=== PATIENT | female | born 1980 | race Caucasian/White ===

== ENCOUNTER 2020-01-08 08:18 | Emergency (ER) | payer OTHER, SELFPAY ==
[2020-01-08 08:30] VITALS: BP 115/69; PULSE 82; RESP 18; TEMP 36.7; O2SAT 98
--- NOTE | 2020-01-08 08:42 | ED.URI ---
HPI - URI/Sore Throat General Chief Complaint: Upper Respiratory Infection Stated Complaint: sore throat Time Seen by Provider: 01/08/20 08:43 Source: patient Mode of arrival: ambulatory Limitations: no limitations History of Present Illness HPI Narrative: Sondra Sanchez is a 39 yo female with a PMH of anxiety comes to express care for sore throat congestion that started this morning. Denies any fever-throat feels like it is on fire Related Data Home Medications Medication Instructions Recorded Confirmed norethindrone ac-eth estradiol 1 tablet PO DAILY 01/08/20 01/08/20 [11/23 (21)] sertraline 50 mg PO DAILY 01/08/20 01/08/20 Allergies Allergy/AdvReac Type Severity Reaction Status Date / Time No Known Allergies Allergy Unknown Verified 01/08/20 08:44 Review of Systems Review of Systems: Narrative: CONSTITUTIONAL: Denies fever, chills, sweats. EYES: Denies visual changes, redness, discharge. ENT: Denies rhinorrhea, has congestion, has sore throat, no otalgia. CARDIOVASCULAR: Denies chest pain, palpitations, edema. RESPIRATORY: Denies dyspnea, wheezing, cough GASTROINTESTINAL: Denies abdominal pain, nausea, vomiting, diarrhea. GENITOURINARY: Denies dysuria, hematuria, abnormal discharge SKIN: Denies rash or itching. NEUROLOGIC: Denies numbness, or focal weakness. PSYCHIATRIC: Denies anxiety or depression. 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, part remis (~2009) Other seasonal allergic rhinitis (~2018) Surgical History Surgical History History of bilateral tubal ligation (~2010) History of section, low transverse (~2009) S/P cholecystectomy (~2017) Family History Family History Father Family history of hypercholesterolemia Hypertension Grandparent Diabetes mellitus Family history of Alzheimer's disease Mother Patient's mother is in good health Social History Social History Years smoked: 9 Smoking status: Former smoker Tobacco type: cigarettes Second hand tobacco smoke exposure: Yes Alcohol intake: never Substance use: never Additional living arrangements comments: own home Additional occupation/education comments: [employer]: [employer] Spiritual care concerns: No (Advent: n/a; Confucianist: n/a) Agree to blood products: Yes Exam Narrative: Exam Narrative: GENERAL: This is a well-nourished, well-developed patient, in mild distress. HEAD: normocephalic, atraumatic. EYES: Sclera clear/white. Vision is grossly intact. EARS: External ears normal, auditory canals clear and without drainage, TMs normal without perforation. Hearing grossly intact. NOSE: External nose normal with nasal discharge, nares without redness, no rhinorrhea. THROAT: Mucous membranes moist, posterior pharynx erythema, no exudate NECK: Neck supple, non-tender CARDIOVASCULAR: Regular rate and rhythm without murmurs, gallops, or rubs. RESPIRATORY: Clear to auscultation. Breath sounds equal bilaterally. No wheezes, rales, or rhonchi. GASTROINTESTINAL: Abdomen soft, non-tender, SKIN: warm, intact with no suspicious lesions or rash, good texture and turgor. NEURO: awake, alert, and oriented to person, place and time. There were no obvious focal neurologic abnormalities. Steady gait EXTREMITIES: Normal range of motion. No edema. BACK: Nontender without deformity . Course Course Emergency Course: Strep swab negative Discussed upper respiratory infection and infection control with patient Vital Signs Vital signs: Vital Signs Temperature 98.1 F 01/08/20 08:30 Pulse Rate 82 01/08/20 08:30 Respir
== END 2020-01-08 09:10 | disposition home or self-care (01) ==
PROVIDERS: Emergency Provider Nurse Practitioner; PCP Family Medicine
DX: J06.9 Acute upper respiratory infection, unspecified (principal); Z87.891 Personal history of nicotine dependence; F41.9 Anxiety disorder, unspecified
CPT/HCPCS: 87081; 87880; 99213; G0463

== ENCOUNTER 2022-05-26 12:54 | Emergency (ER) | payer OTHER, SELFPAY ==
--- NOTE | ~2022-05-26 | XR_ITS ---
EXAMINATION: XR chest 2V 05/26/2022 13:30 INDICATION: Persistent cough PROCEDURE: 2 view chest COMPARISON: No prior studies for comparison. FINDINGS: The lungs are clear. The cardiomediastinal silhouette is within normal limits. There are no pleural effusions. There is no pneumothorax suspected. IMPRESSION: 1: NO ACUTE CARDIOPULMONARY DISEASE. Reviewed, dictated and finalized at location A.
[2022-05-26 12:59] VITALS: BP 131/73; PULSE 97; RESP 16; TEMP 37.1; O2SAT 99
--- NOTE | 2022-05-26 13:20 | ED.GENADULT ---
HPI - General Adult General Chief complaint: Upper Respiratory Infection Stated complaint: cough fatigue Source: patient Mode of arrival: ambulatory Limitations: no limitations History of Present Illness HPI narrative: Patient presents for evaluation of respiratory symptoms since April 30, 2022. She reports a productive cough of clear sputum with mild exertional dyspnea. She is some postnasal drainage and sinus congestion. She denies any fever, chills, nausea, vomiting, diarrhea. No recent sick contacts to her knowledge. She has never had COVID. She has received COVID vaccination. She does not smoke. She spoke with her PCP who advised flonase and Zyrtec but her symptoms have persisted for twelve days following starting the medication. No personal or family history of DVT. No leg swelling. She does have heartburn from time to time. Related Data Home Medications Medication Instructions Recorded Confirmed norethindrone acetate 1 mg-ethinyl 1 tablet PO DAILY 01/08/20 05/26/22 estradiol 20 mcg tablet (Junel) sertraline 25 mg tablet 25 mg PO DAILY 05/26/22 05/26/22 Allergies Allergy/AdvReac Type Severity Reaction Status Date / Time No Known Allergies Allergy Unknown Verified 05/26/22 13:10 Review of Systems Review of Systems: CONSTITUTIONAL: Denies fever, chills, or sweats. EYES: Denies visual changes, redness, or discharge. ENT: Reports sinus congestion and postnasal drainage. Denies otalgia. CARDIOVASCULAR: Denies chest pain, palpitations, or edema. RESPIRATORY: Reports productive cough of clear sputum with mild exertional dyspnea GASTROINTESTINAL: Denies abdominal pain, nausea, vomiting, or diarrhea. GENITOURINARY: Denies dysuria or hematuria. SKIN: Denies rash or itching. MUSCULOSKELETAL: Denies back pain, joint pain, or myalgia. NEUROLOGIC: Denies headache, numbness, dizziness, or weakness. PSYCHIATRIC: Denies anxiety or depression. 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, part remis (~2009) Other seasonal allergic rhinitis (~2018) Surgical History Surgical History History of bilateral tubal ligation (~2010) History of section, low transverse (~2009) S/P cholecystectomy (~2018) Family History Family History Father Family history of hypercholesterolemia Hypertension Grandparent Diabetes mellitus Family history of Alzheimer's disease Mother Patient's mother is in good health Social History Social History Years smoked: 9 Smoking status: Former smoker Tobacco type: cigarettes Second hand tobacco smoke exposure: Yes Alcohol intake: never Substance use: never Additional living arrangements comments: own home Additional occupation/education comments: [employer]: [employer] Spiritual care concerns: No (Tenriism: n/a; Mandaeism: n/a) Agree to blood products: Yes Exam Narrative: GENERAL: Well-appearing, well-nourished, and in no acute distress. HEAD: Normocephalic, atraumatic. EYES: PERRLA and EOMI. ENT: Nares clear, no rhinorrhea or epistaxis. Mucous membranes moist. Oropharynx without tonsillar hypertrophy exudate or other lesions. Bilateral TMs pearly broderick nonbulging NECK: Supple. No adenopathy or masses. No carotid bruits or JVD CHEST: Clear to auscultation. No respiratory distress. No wheezes rales or rhonchi HEART: Regular rate and rhythm. No murmur heard. Normal peripheral pulses. ABDOMEN: Soft, nontender, nondistended, normal active bowel sounds. EXTREMITIES: Normal range of motion. No edema. SKIN: Warm, dry, no rash. NEURO: No focal deficits. Alert and oriented x3.
== END 2022-05-26 13:50 | disposition home or self-care (01) ==
PROVIDERS: Emergency Provider Nurse Practitioner
DX: R05.9 Cough, unspecified (principal); K21.9 Gastro-esophageal reflux disease without esophagitis; Z20.822 Contact with and (suspected) exposure to COVID-19; Z87.891 Personal history of nicotine dependence
CPT/HCPCS: 71046; 87426; 99213; C9803; G0463

== ENCOUNTER 2022-12-17 08:53 | Emergency (ER) | payer OTHER, SELFPAY ==
[2022-12-17 09:00] VITALS: BP 112/62; PULSE 86; RESP 14; TEMP 36.6; O2SAT 98
--- NOTE | 2022-12-17 10:15 | ED.URI ---
HPI - URI/Sore Throat General Chief Complaint: Upper Respiratory Infection Stated Complaint: Sore Throat Time Seen by Provider: 12/17/22 10:15 Source: patient, RN notes reviewed and old records reviewed Mode of arrival: ambulatory Limitations: no limitations History of Present Illness HPI Narrative: 42-year-old female who presents to [facility] complaints of sore throat which started last night some sinus drainage and headache. Patient reports she has taken cough drops and has taken Excedrin headache. Patient denies any known fevers, chills, or sweats, denies any body aches. Patient has been COVID vaccinated also has had flu shot. Patient states children have been ill with colds. MD elicited complaint: sore throat, rhinorrhea and other (headache) Onset (ago): day(s) (last night) Pain scale (0-10): 6 Treatments prior to arrival: other (cough drops and Excedrin) Related Data Home Medications Medication Instructions Recorded Confirmed norethindrone 1 mg-ethinyl 1 tablet PO DAILY 12/17/22 12/17/22 estradiol 20 mcg (21)-iron 75 mg (7) tablet ([place] Fe 1-20 EQ (28)) sertraline 50 mg tablet 50 mg PO DAILY 12/17/22 12/17/22 Allergies Allergy/AdvReac Type Severity Reaction Status Date / Time No Known Allergies Allergy Unknown Verified 12/17/22 09:41 Review of Systems Review of Systems: CONSTITUTIONAL: Denies malaise, chills, sweats, or fever. EYES: Denies visual changes, redness, or discharge. ENT: Reports rhinorrhea, congestion, sinus pain,no otalgia positive for sore throat. CARDIOVASCULAR: Denies chest pain, palpitations, or edema. RESPIRATORY: Reports no cough.? Denies dyspnea. GASTROINTESTINAL: Denies abdominal pain, nausea, vomiting, diarrhea SKIN: Denies rash or itching. MUSCULOSKELETAL: Denies myalgia. NEUROLOGIC: Reports headache. 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, part remis (~2009) Other seasonal allergic rhinitis (~2019) Surgical History Surgical History History of bilateral tubal ligation (~2010) History of section, low transverse (~2009) S/P cholecystectomy (~2018) Family History Family History Father Family history of hypercholesterolemia Hypertension Grandparent Diabetes mellitus Family history of Alzheimer's disease Mother Patient's mother is in good health Social History Social History Years smoked: 9 Smoking status: Former smoker Tobacco type: cigarettes Second hand tobacco smoke exposure: Yes Alcohol intake: never Substance use: never Living arrangements: with family Additional living arrangements comments: own home Occupation/Education: occupation Additional occupation/education comments: [employer]: [employer] Spiritual care concerns: No (Lutheran: n/a; Jainism: n/a) Agree to blood products: Yes Comments At time of signature, agree with nursing past medical, surgical, social and family history. There is no relevant family history pertinent to the presenting complaint Exam Narrative: GENERAL: Well-appearing, well-nourished, and in no acute distress. HEAD: Normocephalic EYES: PERRLA, conjunctivae clear ENT: Nares clear, turbinates edematous and erythematous, clear discharge. Mucous membranes moist. TM pearly broderick with dull light reflex bilaterally; no tragal tenderness. Oropharynx erythematous without lesions. Tonsils not enlarged and without exudate, no drooling, no hoarseness, no trismus, uvula midline.some headache discomfort. NECK: Supple. No lymphadenopathy
== END 2022-12-17 10:30 | disposition home or self-care (01) ==
PROVIDERS: Emergency Provider Registered Nurse; PCP Hospitalist
DX: J06.9 Acute upper respiratory infection, unspecified (principal); J02.9 Acute pharyngitis, unspecified; Z87.891 Personal history of nicotine dependence; F32.9 Major depressive disorder, single episode, unspecified
CPT/HCPCS: 87081; 87880; 99213; G0463